=== PATIENT | female | born 1955 | race Caucasian/White ===

== ENCOUNTER 2016-12-28 06:37 | Day surgery (SDC) | payer BC ==
[~2016-12-28 06:37] MED LIST: Lactated Ringers 1,000 ML IV SCH
[2016-12-28] MEDS ORDERED: Lidocaine 2% 100 MG/5 ML Syringe IVPUSH ONE (08:00)
[2016-12-28] MEDS ORDERED: Midazolam 1 MG/ML 2 ML SDV IV ONE (08:00)
[2016-12-28] MEDS ORDERED: Propofol 200 MG/20 ML SDV IV ONE (08:00)
--- NOTE | 2016-12-28 08:26 | PCM.OPNOTE ---
- General Post-Op/Procedure Note Date of Surgery/Procedure: 12/28/16 Operative Procedure(s): c scope Findings: normal colon Pre Op Diagnosis: screening Post-Op Diagnosis: nl scope Anesthesia Technique: MAC Primary Surgeon: De France Anesthesia Provider: Joana Du Pathology: none Complications: None Condition: Good Free Text/Narrative:: see dictation
[2016-12-28 10:04] VITALS: BP 139/85
--- NOTE | 2016-12-28 11:42 | OR ---
DATE OF OPERATION: 12/28/2016 SURGEON: De France MD PROCEDURE PERFORMED: Colonoscopy. PREOPERATIVE DIAGNOSIS: Colon cancer screening. POSTOPERATIVE DIAGNOSIS: Normal colon. INDICATIONS FOR PROCEDURE: This is a 61-year-old white female, who presents for screening colonoscopy. She was offered and accepted the same. DESCRIPTION OF PROCEDURE: After an excellent IV sedation was administered, digital rectal exam was performed. No marked abnormality was noted. The flexible colonoscope was inserted and advanced to the cecum without difficulty. The prep was excellent. The following findings were noted. Ascending colon, unremarkable. Transverse colon, unremarkable. Descending colon, unremarkable. Sigmoid, unremarkable. Rectum, unremarkable. Colon was deflated, scope was removed. RECOMMENDATIONS: Repeat colonoscopy in 10 years. /[id number] /MODL
== END 2016-12-28 09:50 | disposition home or self-care (01) ==
LOC: FB.SDS 06:37
PROVIDERS: ATTEND Surgery
DX: Z12.11 Encounter for screening for malignant neoplasm of colon (principal); E78.5 Hyperlipidemia, unspecified; I10 Essential (primary) hypertension; F41.9 Anxiety disorder, unspecified; Z90.49 Acquired absence of other specified parts of digestive tract; Z98.890 Other specified postprocedural states; Z98.51 Tubal ligation status; Z87.891 Personal history of nicotine dependence; Z79.899 Other long term (current) drug therapy
CPT/HCPCS: 45378; J7120; J2250; J2704